=== PATIENT | female | born 1965 | race Caucasian/White ===

== ENCOUNTER 2023-08-26 21:12 | Emergency (ER) | payer BC ==
[2023-08-26 23:04] VITALS: BP 133/101; PULSE 60
== END 2023-08-26 22:40 | disposition home or self-care (01) ==
LOC: JD.ED 21:12
DX: S92.355A Nondisplaced fracture of fifth metatarsal bone, left foot, initial encounter for closed fracture (principal); W22.8XXA Striking against or struck by other objects, initial encounter
CPT/HCPCS: 73630-26-LT; 73630-LT; 99283